=== PATIENT | male | born 1980 | race Caucasian/White ===

== ENCOUNTER 2017-02-07 14:41 | Emergency (ER) | payer OTHER ==
[~2017-02-07] VITALS: Ht 180.3 cm; Wt 98.2 kg
[~2017-02-07 14:41] MED LIST: ABILIFY15 MG; ABILIFY15 MG PO; CLONAZEPAM2 MG; FOCALIN XR40 MG PO; KLONOPIN1 MG PO; LEXAPRO20 MG PO; MELOXICAM15 MG PO; NAPROSYN500 MG PO; NAPROXEN500 MG PO; NOHOMEMEDS; PEN-VEE K,VEET500 MG PO; PRAZOSIN HCL2 MG; PRAZOSIN HCL2 MG PO; XANAX1 MG PO; ZOLPIDEM TARTRA10 MG
[2017-02-07 15:14] LABS: HEMATOCRIT 34.3 % (38.0-50.0); MCH 29.9 PG (29.0-34.0); MCHC 33.5 G/DL (30.0-36.0); MCV 89.3 FL (86-99); PLATELET COUNT 315 K/uL (156-360); RBC DIS.WIDTH-CV 13.2 % (11.8-14.6); RBC DIS.WIDTH-SD 43.1 % (39-53); RED BLOOD COUNT 3.84 M/uL (4.00-5.50); WHITE BLOOD COUNT 11.2 K/uL (4.1-10.2)
[2017-02-07 15:26] LABS: CHLORIDE 107 mEq/L (99-109); POTASSIUM 4.3 mEq/L (3.7-5.4); SODIUM 139 mEq/L (136-147)
[2017-02-07 15:27] LABS: D-DIMER ELISA < 150.00 ng/mLDDU (<230)
[2017-02-07 15:28] LABS: GLUCOSE 123 mg/dL (70-99)
[2017-02-07 15:29] LABS: ANION GAP 7 MEQ/L (2-14)
[2017-02-07 15:31] LABS: GFR ESTIMATE (CALCULATED) > 59 mL/min/
[2017-02-07 15:32] LABS: UREA NITROGEN (BUN) 11 mg/dL (9-23)
[2017-02-07 15:36] LABS: TROP-I INTERPRETATION NEGATIVE; TROPONIN-I < 0.01 ng/mL (0.0-0.30)
[2017-02-07 16:38] VITALS: BP 128/76
== END 2017-02-07 16:39 | disposition home or self-care (01) ==
LOC: EME 14:41
PROVIDERS: Physician Assistant Medical
DX: J45.909 Unspecified asthma, uncomplicated (principal); R05 Cough; F17.200 Nicotine dependence, unspecified, uncomplicated; Z88.2 Allergy status to sulfonamides
CPT/HCPCS: 71020; 80048; 84484; 85027; 85379; 93005; 94640; 99281; 99284; J1100

== ENCOUNTER 2017-06-01 12:32 | Emergency (ER) | payer OTHER ==
[~2017-06-01] VITALS: Ht 180.3 cm; Wt 104.8 kg
[2017-06-01] MEDS ORDERED: FLEXERIL10 MG PO (13:36)
[2017-06-01] MEDS ORDERED: LIDODERM 5% P1 PATCH TD (13:36)
[2017-06-01] MEDS ORDERED: MOTRIN800 MG PO (13:36)
[2017-06-01 14:05] VITALS: BP 112/81
== END 2017-06-01 14:06 | disposition home or self-care (01) ==
LOC: EME 12:32
DX: S39.012A Strain of muscle, fascia and tendon of lower back, initial encounter (principal); M62.830 Muscle spasm of back; F17.200 Nicotine dependence, unspecified, uncomplicated; Z88.2 Allergy status to sulfonamides
CPT/HCPCS: 72100; 99281; 99283; J1885

== ENCOUNTER 2017-06-28 19:04 | Emergency (ER) | payer OTHER ==
[~2017-06-28] VITALS: Ht 180.3 cm; Wt 100.2 kg
[~2017-06-28 19:04] MED LIST changes: +FLEXERIL10 MG PO; +LIDODERM 5% P1 PATCH TD; +MOTRIN800 MG PO
[2017-06-28 20:33] LABS: HEMATOCRIT 34.2 % (38.0-50.0); HEMOGLOBIN 11.8 G/DL (12.5-16.6); MCH 30.8 PG (29.0-34.0); MCHC 34.5 G/DL (30.0-36.0); MCV 89.3 FL (86-99); PLATELET COUNT 235 K/uL (156-360); RBC DIS.WIDTH-CV 13.3 % (11.8-14.6); RBC DIS.WIDTH-SD 43.6 % (39-53); RED BLOOD COUNT 3.83 M/uL (4.00-5.50); WHITE BLOOD COUNT 9.5 K/uL (4.1-10.2)
[2017-06-28 21:03] LABS: TROP-I INTERPRETATION NEGATIVE; TROPONIN-I < 0.01 ng/mL (0.0-0.30)
[2017-06-28 21:17] LABS: CHLORIDE 103 mEq/L (99-109); POTASSIUM 3.9 mEq/L (3.7-5.4); SODIUM 134 mEq/L (136-147)
[2017-06-28 21:18] LABS: MAGNESIUM 1.9 mg/dL (1.3-2.7)
[2017-06-28 21:19] LABS: GLUCOSE 122 mg/dL (70-99)
[2017-06-28 21:23] LABS: GFR ESTIMATE (CALCULATED) > 59 mL/min/ (58.99-99999)
[2017-06-28 21:24] LABS: UREA NITROGEN (BUN) 9 mg/dL (9-23)
[2017-06-28] MEDS ORDERED: VIBRAMYCIN100 MG PO (22:04)
[2017-06-28] MEDS ORDERED: MOTRIN800 MG PO (22:04)
[2017-06-28] MEDS ORDERED: VENTOLIN HFA18 GM IH (22:04)
[2017-06-28] MEDS ORDERED: PREDNISONE20 MG PO (22:04)
[2017-06-28 22:23] VITALS: BP 110/76
== END 2017-06-28 22:24 | disposition home or self-care (01) ==
LOC: EME 19:04 → EXP 19:04
DX: J18.0 Bronchopneumonia, unspecified organism (principal); F43.10 Post-traumatic stress disorder, unspecified; F32.9 Major depressive disorder, single episode, unspecified; Z88.2 Allergy status to sulfonamides; Z87.891 Personal history of nicotine dependence; F12.90 Cannabis use, unspecified, uncomplicated
CPT/HCPCS: 71046; 80048; 83735; 84484; 85027; 93005; 94640; 99281; 99284; J1885; J7030; J7512